=== PATIENT | female | born 1990 | race Caucasian/White ===

== ENCOUNTER 2018-12-05 17:56 | Emergency (ER) | payer SELFPAY ==
[2018-12-05] MEDS ORDERED: oxyCODONE/Acetamin 5/325 MG* TAB PO ONE (18:48)
[2018-12-05] MEDS ORDERED: NS 0.9% 1000 ML** 1,000 ML IV ONE (19:05)
[2018-12-05] MEDS ORDERED: Insulin REGULAR(*) 1 UNITS UNIT SUBCUT ONE (19:32)
[2018-12-05 19:34] LABS: ABS Basophils 0.1 10^3/ul (0-0.2); ABS Eosinophils 0.3 10^3/ul (0-0.6); ABS Lymphocytes 2.8 10^3/ul (1.0-4.8); ABS Monocytes 0.8 10^3/ul (0-0.8); ABS Neutrophils 10.3 10^3/ul (1.5-7.7); ABS Nucleated RBC 0 10^3/ul; Eosinophil % 2.2 %; Hematocrit 38 % (33-41); Lymphocyte % 19.5 %; Mean Corpuscular HGB Conc 34 g/dL (31-36); Mean Corpuscular Hemoglobin 27 pg (27-31); Mean Corpuscular Volume 80 fL (80-97); Mean Platelet Volume 7.1 fL (7.4-10.4); Nucleated Red Blood Cells % 0; Platelet Count 331 10^3/uL (150-450); Red Blood Count 4.77 10^6 /uL (3.70-4.87); Red Cell Distribution Width 15 % (10.5-15); White Blood Count 14.2 10^3/uL (3.5-10.8)
[2018-12-05 19:45] LABS: Albumin/Globulin Ratio 1.3 (1-3); BUN/Creatinine Ratio 15.6 (8-20); Calcium 9.5 mg/dL (8.6-10.3); EGFR African American 134.7 (>60); EGFR Non-African American 111.3 (>60); Globulin 3.2 g/dL (2-4); Potassium 3.7 mmol/L (3.5-5.0); Total Bilirubin 0.3 mg/dL (0.2-1.0); Total Protein 7.2 g/dL (6.4-8.9)
[2018-12-05] MEDS ORDERED: Clindamycin CAP* 150 MG PO ONE (20:13)
--- NOTE | 2018-12-05 21:34 | ED ---
Throat Pain/Nasal Congestion - HPI Summary HPI Summary: 28-year-old female presents with dental pain for the past couple days. States she broke her left upper tooth. She states the pain radiates into her ear. She states very sensitive to temperature. She has not followed with a dentist. She states that her pain makes it so she can't sleep. She denies any fevers. No swelling or pain with eye movement. No chest pain shortness breath. She admits to some dysuria. She is a type I diabetic and has been out of her insulin for 3 months. She states she just recently moved here and does not have insurance so cannot afford it. She was on metformin month ago but has not been able to afford it since. She denies any abdominal pain. She states she believes she has a yeast infection as has been having itching and burning. She denies any increased thirst. - History of Current Complaint Chief Complaint: EDDentalPain Time Seen by Provider: 12/05/18 18:36 - Allergies/Home Medications Allergies/Adverse Reactions: Allergies Allergy/AdvReac Type Severity Reaction Status Date / Time amoxicillin Allergy Hives/Diff. Verified 12/05/18 18:25 Breathing/I tching Penicillins Allergy Hives/Diff. Verified 12/05/18 18:25 Breathing/I tching Home Medications: Home Medications Ibuprofen TAB* [Motrin TAB* 400 MG] 400 mg PO Q6H PRN 12/05/18 [History Confirmed 12/05/18] Insulin GLARGINE(*) [Lantus(*)] 17 units SUBCUT BEDTIME 12/05/18 [History Confirmed 12/05/18] Insulin Lispro [Humalog Kwikpen] 0 unit SUBCUT . DIRECTED 12/05/18 [History Confirmed 12/05/18] PMH/Surg Hx/FS Hx/Imm Hx Infectious Disease History: No Infectious Disease History: Denies: Traveled Outside the [place] in Last 30 Days - Social History Alcohol Use: Rare Substance Use Type: Reports: None Smoking Status (MU): Light Every Day Tobacco Smoker Review of Systems Negative: Fever Positive: Dental Pain Negative: Chest Pain Negative: Shortness Of Breath Positive: dysuria All Other Systems Reviewed And Are Negative: Yes Physical Exam Triage Information Reviewed: Yes Vital Signs On Initial Exam: Initial Vitals Temp Pulse Resp BP Pulse Ox 98.7 F 115 20 142/87 99 12/05/18 18:04 12/05/18 18:04 12/05/18 18:04 12/05/18 18:04 12/05/18 18:04 Vital Signs Reviewed: Yes Appearance: Positive: Well-Appearing Skin: Positive: Warm, Dry Head/Face: Positive: Normal Head/Face Inspection Eyes: Positive: Normal, EOMI, NEFTALI, Conjunctiva Clear ENT: Positive: Normal ENT inspection, Pharynx normal, TMs normal Dental: Positive: Percussion Tenderness @ - 14, Dental Fracture @ - 14 Respiratory/Lung Sounds: Positive: Clear to Auscultation, Breath Sounds Present Cardiovascular: Positive: Normal, RRR Abdomen Description: Positive: Nontender, Soft. Negative: CVA Tenderness (R), CVA Tenderness (L) Bowel Sounds: Positive: Present Musculoskeletal: Positive: Normal Neurological: Positive: Normal Psychiatric: Positive: Normal Diagnostics - Vital Signs Vital Signs Temp Pulse Resp BP Pulse Ox 12/05/18 20:42 86 16 116/75 96 12/05/18 19:03 18 12/05/18 18:04 98.7 F 115 20 142/87 99 - Laboratory Lab Results: Lab Results 12/05/18 12/05/18 12/05/18 Range/Units 18:57 19:21 19:21 WBC 14.2 H (3.5-10.8) 10^3/uL RBC 4.77 (3.70-4.87) 10^6 /uL Hgb 13.0 (12.0-16.0) g/dL Hct 38 (33-41) % MCV 80 (80-97) fL MCH 27 (27-31) pg MCHC 34 (31-36) g/dL RDW 15 (10.5-15) % Plt Count 331 (150-450) 10^3/uL MPV 7.1 L (7.4-10.4) fL Neut % (Auto) 72.4 % Lymph % (Auto) 19.5 % [place] % (Auto) 5.3 % Eos % (Auto) 2.2 % Baso % (Auto) 0.6 % Absolute Neuts (auto) 10.3 H (1.5-7.7) 10^3/ul Absolute Lymphs (auto) 2.8 (1.0-4.8) 10^3/ul Absolute Monos (auto) 0.8 (0-0.8) 10^3/ul Absolute Eos (auto) 0.3 (0-0.6) 10^3/ul Absolute Basos (auto) 0.1 (0-0.2) 10^3/ul Absolute Nucleated RBC 0 10^3/ul Nucleated RBC % 0 VBG pH (7.32-7.43) VBG pCO2 (41-51) mmHg VBG pO2 (35-45) mmHg VBG HCO3 (24-28) mmol/L VBG O2 Saturation (70-80) % VBG Base Excess (0.0-4.0) mmol/L Sodium 133 L (135-145) mmol/L Potassium 3.7 (3.5-5.0) mmol/L Chloride 98 L (101-111) mmol/L Carbon Dioxide 26 (22-32) mmol/L Anion Gap 9 (2-11) mmol/L BUN 10 (6-24) mg/dL Creatinine 0.64 (0.51-0.95) mg/dL Est GFR ( Amer) 134.7 (>60) Est GFR (Non-Af Amer) 111.3 (>60) BUN/Creatinine Ratio 15.6 (8-20) Glucose 414 H (70-100) mg/dL POC Glucose (mg/dL) 412 H* (70-100) mg/dL Lactic Acid (0.5-2.0) mmol/L Calcium 9.5 (8.6-10.3) mg/dL Total Bilirubin 0.30 (0.2-1.0) mg/dL AST 12 L (13-39) U/L ALT 14 (7-52) U/L Alkaline Phosphatase 81 (34-104) U/L Total Protein 7.2 (6.4-8.9) g/dL Albumin 4.0 (3.2-5.2) g/dL Globulin 3.2 (2-4) g/dL Albumin/Globulin Ratio 1.3 (1-3) 12/05/18 12/05/18 12/05/18 Range/Units 19:21 19:21 20:31 WBC (3.5-10.8) 10^3/uL RBC (3.70-4.87) 10^6 /uL Hgb (12.0-16.0) g/dL Hct (33-41) % MCV (80-97) fL MCH (27-31) pg MCHC (31-36) g/dL RDW (10.5-15) % Plt Count (150-450) 10^3/uL MPV (7.4-10.4) fL Neut % (Auto) % Lymph % (Auto) % [place] % (Auto) % Eos % (Auto) % Baso % (Auto) % Absolute Neuts (auto) (1.5-7.7) 10^3/ul Absolute Lymphs (auto) (1.0-4.8) 10^3/ul Absolute Monos (auto) (0-0.8) 10^3/ul Absolute Eos (auto) (0-0.6) 10^3/ul Absolute Basos (auto) (0-0.2) 10^3/ul Absolute Nucleated RBC 10^3/ul Nucleated RBC % VBG pH 7.41 (7.32-7.43) VBG pCO2 48 (41-51) mmHg VBG pO2 < 38.0 (35-45) mmHg VBG HCO3 27.8 (24-28) mmol/L VBG O2 Saturation 67.9 L (70-80) % VBG Base Excess 4.8 H (0.0-4.0) mmol/L Sodium (135-145) mmol/L Potassium (3.5-5.0) mmol/L Chloride (101-111) mmol/L Carbon Dioxide (22-32) mmol/L Anion Gap (2-11) mmol/L BUN (6-24) mg/dL Creatinine (0.51-0.95) mg/dL Est GFR ( Amer) (>60) Est GFR (Non-Af Amer) (>60) BUN/Creatinine Ratio (8-20) Glucose (70-100) mg/dL POC Glucose (mg/dL) 355 H (70-100) mg/dL Lactic Acid 2.9 H* (0.5-2.0) mmol/L Calcium (8.6-10.3) mg/dL Total Bilirubin (0.2-1.0) mg/dL AST (13-39) U/L ALT (7-52) U/L Alkaline Phosphatase (34-104) U/L Total Protein (6.4-8.9) g/dL Albumin (3.2-5.2) g/dL Globulin (2-4) g/dL Albumin/Globulin Ratio (1-3) Result Diagrams: 12/05/18 19:21 12/05/18 19:21 Lab Statement: Any lab studies that have been ordered have been reviewed, and results considered in the medical decision making process. Re-Evaluation - Re-Evaluation First Eval Re-Evaluation Time: 21:34 Change: Improved Comment: feeling better Second Eval Re-Evaluation Time: 22:00 Comment: currently asleep Third Eval Re-Evaluation Time: 22:45 Comment: discussed does not have uti. told needs to get insulin refilled as soon as possible EENT Course/Dx - Course Course Of Treatment: 28-year-old female presents with dental pain for the past couple days. States she broke her left upper tooth. She states the pain radiates into her ear. She states very sensitive to temperature. She has not followed with a dentist. She states that her pain makes it so she can't sleep. She denies any fevers. No swelling or pain with eye movement. No chest pain shortness breath. She admits to some dysuria. She is a type I diabetic and has been out of her insulin for 3 months. She states she just recently moved here and does not have insurance so cannot afford it. She was on metformin month ago but has not been able to afford it since. She denies any abdominal pain. She states she believes she has a yeast infection as has been having itching and burning. She denies any increased thirst. On exam fractures seen at tooth 14. No abscess seen. Lungs clear to auscultation. Abdomen soft nontender. Negative CVA tenderness. Glucose was 414. No evidence of DKA. Gave fluids and 10 units of insulin and glucose is now 299. Gave a dose of long -acting Lantus. discussed case with dr gonzalez. Will send script to pharmacy here for metformin for next couple days. explained importance of getting insurance. We'll place on Clindamycin for dental issue. Urine does not appear as UTI but will give dose of Diflucan. Told to follow-up [facility] about [facility]. Patient understands and agrees with plan. - Differential Diagnoses Differential Diagnoses: Dental Abscess, Dental Caries, Fractured Tooth - Diagnoses Provider Diagnoses: Dental infection, Hyperglycemia Discharge - Sign-Out/Discharge Documenting (check all that apply): Patient Departure Patient Received Moderate/Deep Sedation with Procedure: No - Discharge Plan Condition: Good Disposition: HOME Prescriptions: Clindamycin Cap(NF) [Clindamycin Cap 300 mg Cap(NF)] 300 mg PO TID #21 cap traMADol TAB* [Ultram*] 50 mg PO Q12H PRN #6 tab MDD 2 PRN Reason: Pain Patient Education Materials: Toothache (ED) Referrals: [facility] [Outside] Additional Instructions: Take clindamycin three times a day for 7 days Take ibuprofen every 6 hours for pain as needed, use tramadol every 12 hours as needed for pain Take metformin daily starting tomorrow night Avoid hard, crunchy food until seen by dentist follow up with [facility] about diabetes Return to ED if develop any new or worsening symptoms Establish care with primary care physician and dentist as soon as possible - Billing Disposition and Condition Condition: GOOD Disposition: Home Images - Images Dental: 1 - fracture
[2018-12-05 22:11] LABS: Urine Appearance Clear; Urine Bilirubin Negative (Negative); Urine Blood Negative (Negative); Urine Color Straw; Urine Glucose 3+(>=500 mg/dL) (Negative); Urine Ketones Trace (Negative); Urine Nitrite Negative (Negative); Urine Protein Negative (Negative); Urine Specific Gravity 1.033 (1.010-1.030); Urine Urobilinogen Negative (Negative)
[2018-12-05] MEDS ORDERED: Fluconazole 150 MG TAB PO ONE (22:23)
[2018-12-05] MEDS ORDERED: Insulin GLARGINE(*) 1 UNITS UNIT SUBCUT ONE (22:30)
[2018-12-05 23:08] VITALS: BP 118/70
== END 2018-12-05 23:07 | disposition home or self-care (01) ==
LOC: ED 17:56
DX: K04.7 Periapical abscess without sinus (principal); R73.9 Hyperglycemia, unspecified; K08.89 Other specified disorders of teeth and supporting structures; R30.0 Dysuria; F17.210 Nicotine dependence, cigarettes, uncomplicated
CPT/HCPCS: 36415; 80053; 81003; 82803; 83605; 85025; 96360; 96372; 96375; 99283; A9270-GY